=== PATIENT | male | born 1955 | race Caucasian/White ===

== ENCOUNTER 2021-01-26 13:00 | Emergency (ER) | payer BC ==
[2021-01-26 13:09] VITALS: PULSE 75; TEMP 98.1; BMI 23.7
[2021-01-26] MEDS ORDERED: SODIUM CHLORIDE 0.9% 500 ML INFUS.BAG IV ONE (14:29)
[2021-01-26 14:36] LABS: BASO % 0.6 % (0-2.0); EOS % 1.7 % (0-4.5); HEMATOCRIT 45.4 % (35.4-49); HEMOGLOBIN 15.4 GM/dL (11.7-16.9); LYMPH % 14.9 % (8-40); MCH 30.8 pg (25.7-33.7); MEAN CELL VOLUME 90.7 fl (80-96); MEAN PLT VOLUME 7.9 fl (7.5-11.1); MONO % 5.4 % (3.8-10.2); NEUT % 77.4 % (42.8-82.8); PLATELET COUNT 227 10^3/uL (134-434); RDW 13.4 % (11.9-15.9)
[2021-01-26] MEDS ORDERED: DIPHTH,PERTUSS(ACELL),TET 0.5 ML DISP.SYRIN IM ONE ×3 (14:48→15:57)
[2021-01-26 14:55] LABS: CHLORIDE 108 mmol/L (98-107); SODIUM 142 mmol/L (136-145)
[2021-01-26 14:58] LABS: ALBUMIN 3.9 g/dl (3.4-5.0); ANION GAP 6 MMOL/L (8-16); BLOOD UREA NITROGEN 16.6 mg/dL (7-18); CALCIUM 8.8 mg/dL (8.5-10.1); CO2 29 mmol/L (21-32); GLUCOSE,RANDOM 90 mg/dL (74-106); MAGNESIUM 2.2 mg/dL (1.8-2.4)
[2021-01-26 15:01] LABS: CREATININE 0.8 mg/dL (0.55-1.3); PHOSPHOROUS 3.6 mg/dL (2.5-4.9); SGOT/AST 16 U/L (15-37); SGPT/ALT 24 U/L (13-61)
[2021-01-26 15:02] LABS: BILIRUBIN,TOTAL 0.4 mg/dL (0.2-1)
[2021-01-26 15:03] LABS: TOT PROT 6.9 g/dl (6.4-8.2)
[2021-01-26 15:04] LABS: ALK PHOS 50 U/L (45-117)
[2021-01-26] MEDS ORDERED: SODIUM CHLORIDE 1,000 ML IV STA (15:12)
[2021-01-26 17:42] VITALS: BP 189/114
== END 2021-01-26 17:39 | disposition home or self-care (01) ==
LOC: JER 13:00
PROC: 3E0234Z Introduction of Serum, Toxoid and Vaccine into Muscle, Percutaneous Approach (ICD-10-PCS; principal; 2021-01-26)
PROC: 3E0337Z Introduction of Electrolytic and Water Balance Substance into Peripheral Vein, Percutaneous Approach (ICD-10-PCS; 2021-01-26)
PROC: 0HQGXZZ Repair Left Hand Skin, External Approach (ICD-10-PCS; 2021-01-26)
DX: S62.637B Displaced fracture of distal phalanx of left little finger, initial encounter for open fracture (principal); R55 Syncope and collapse
CPT/HCPCS: 36415; 71045-TC-FY; 73140-TC-LT-FY; 80053; 82550; 82553; 83735; 84100; 84484; 85025; 93005; 93010; 99285-25

== ENCOUNTER 2022-07-26 21:25 | Emergency (ER) | payer BC ==
[2022-07-26 21:36] VITALS: BP 155/106; PULSE 103; RESP 16; TEMP 98.8; BMI 23.7
[2022-07-26] MEDS ORDERED: SODIUM CHLORIDE 1,000 ML IV ONE ×2 (21:51)
[2022-07-26 22:05] LABS: HEMATOCRIT 47.4 % (35.4-49); HEMOGLOBIN 15.7 G/dL (11.7-16.9); MCH 30.2 pg (25.7-33.7); MCHC 33.1 g/dl (32.0-35.9); MEAN PLT VOLUME 7.6 fl (7.5-11.1); PLATELET COUNT 177.7 10^3/uL (134-434); RBC 5.21 10^6/uL (4.00-5.60); RDW 14.1 % (11.9-15.9)
[2022-07-26] MEDS ORDERED: FAMOTIDINE 20 MG/50 ML IVPB 20 MG/50 ML MG IVPB ONE (22:13)
[2022-07-26 22:25] LABS: ALBUMIN 3.4 g/dl (3.4-5.0); BILIRUBIN,TOTAL 0.8 mg/dl (0.2-1); CALCIUM 7.8 mg/dl (8.5-10); CREATININE 0.7 mg/dl (0.55-1.3); TOT PROT 6.1 g/dl (6.4-8.2)
== END 2022-07-26 23:18 | disposition home or self-care (01) ==
LOC: FER 21:25
PROC: 3E033GC Introduction of Other Therapeutic Substance into Peripheral Vein, Percutaneous Approach (ICD-10-PCS; principal; 2022-07-26)
DX: R11.2 Nausea with vomiting, unspecified (principal); E86.0 Dehydration
CPT/HCPCS: 36415; 80053; 85027; 93005; 99284-25

== ENCOUNTER 2024-02-14 04:39 | Day surgery (SDC) | payer BC ==
[2024-02-11 13:48] VITALS: BMI 24.1
[2024-02-14 09:18] VITALS: TEMP 97.8
[2024-02-14 10:47] VITALS: RESP 16
[2024-02-14 10:53] VITALS: BP 130/69; PULSE 64
== END 2024-02-14 10:56 | disposition home or self-care (01) ==
LOC: JASU-ENDO 04:39
PROVIDERS: ATTEND Internal Medicine Gastroenterology
PROC: 0DBP8ZX Excision of Rectum, Via Natural or Artificial Opening Endoscopic, Diagnostic (ICD-10-PCS; 2024-02-14)
PROC: 0DBN8ZX Excision of Sigmoid Colon, Via Natural or Artificial Opening Endoscopic, Diagnostic (ICD-10-PCS; principal; 2024-02-14 10:00)
DX: Z12.11 Encounter for screening for malignant neoplasm of colon (principal); D12.5 Benign neoplasm of sigmoid colon; D12.8 Benign neoplasm of rectum; K64.8 Other hemorrhoids; K57.30 Diverticulosis of large intestine without perforation or abscess without bleeding; Z86.010 Personal history of colon polyps
CPT/HCPCS: 88305-TC